=== PATIENT | female | born 1955 | race Caucasian/White ===

== ENCOUNTER 2016-11-02 08:57 | Outpatient (CLI) | payer OTHER ==
--- NOTE | 2016-11-02 09:52 | DIAGNOSTIC IMAGING REPORT ---
PROCEDURE: US KIDNEY/RENAL COMPLETE INDICATION: RENAL INSUFFICIENCY TECHNIQUE: Transabdominal scans of the kidneys with calculation of resistive indices. Prevoid and postvoid bladder volumes were obtained. COMPARISON: CT abdomen 02/21/2014 abdominal ultrasound 02/20/2014. FINDINGS: RIGHT: Kidney measures 9 x 3.8 x 5.2 cm. Cortex measures 0.8 cm (previously normal). No calculi or hydronephrosis. Normal resistive indices measure 0.67 or less. LEFT: Kidney measures 9 x 4.7 x 4.7 cm. Cortex measures 0.6 cm (previously normal). No calculi or hydronephrosis. Normal resistive indices measure 0.64 or less. BLADDER: Right ureteral jet visualized. Bladder has a normal appearance. Prevoid bladder volume 215 ml. There is no postvoid residual bladder volume. IMPRESSION: 1. Bilateral renal cortical atrophy, new since CT scan 02/21/2014 2. No evidence of obstructive uropathy
== END 2016-11-02 23:00 ==
LOC: US SRH 08:57
DX: N26.1 Atrophy of kidney (terminal) (principal)